=== PATIENT | female | born 1970 | race Caucasian/White ===

== ENCOUNTER 2017-10-11 00:14 | Emergency (ER) | payer SELFPAY ==
[2017-10-11 00:36] VITALS: BP 132/78; PULSE 75; TEMP 98.5; BMI 31.1
--- NOTE | 2017-10-11 01:22 | PDOC ---
History of Present Illness - General Chief Complaint: Sore Throat Stated Complaint: SORE THROAT Time Seen by Provider: 10/11/17 00:55 History Source: Patient Exam Limitations: No Limitations - History of Present Illness Initial Comments: 10/11/17 01:24 47-year-old female with no medical history presents to the emergency department complaining of a sore throat 3 days. Pain is described as 6/10 sore nonradiating intermittent discomfort with fever/chills but denies headache, dizziness, lightheadedness, facial pains, nasal congestion, rhinorrhea, earaches , neck stiffness/pain, back pains, chest pain, shortness of breath, abdominal pains, flank pains, urinary symptoms. Patient states she's been taken Tylenol with relief. Patient is able to tolerate by mouth without any difficulties. Timing/Duration: other (x3d) Associated Symptoms: reports: fever/chills (101.0 tmax). denies: cough, headaches, malaise, nausea/vomiting Past History - Past Medical History Allergies/Adverse Reactions: Allergies Allergy/AdvReac Type Severity Reaction Status Date / Time No Known Allergies Allergy Verified 10/11/17 00:33 Home Medications: Ambulatory Orders NK [No Known Home Medication] 09/15/16 Anemia: No Asthma: No Cancer: No Cardiac Disorders: No CVA: No COPD: No CHF: No Dementia: No Diabetes: No GI Disorders: No Disorders: No HTN: No Hypercholesterolemia: No Liver Disease: No Seizures: No Thyroid Disease: No - Surgical History Abdominal Surgery: No Appendectomy: No Cardiac Surgery: No Cholecystectomy: Yes (over 10 years ago) Lung Surgery: No Neurologic Surgery: No Orthopedic Surgery: No - Immunization History Immunization Up to Date: Yes - Suicide/Smoking/Psychosocial Hx Smoking Status: No Smoking History: Never smoked Have you smoked in the past 12 months: No Number of Cigarettes Smoked Daily: 0 Information on smoking cessation initiated: No Hx Alcohol Use: No Drug/Substance Use Hx: No Substance Use Type: None, Alcohol Hx Substance Use Treatment: No Review of Systems - Review of Systems Able to Perform ROS?: Yes Comments:: 10/11/17 01:17 CONSTITUTIONAL: +fever/chills Absent: diaphoresis, generalized weakness, malaise, loss of appetite HEENT: +throat pain Absent: rhinorrhea, nasal congestion, throat swelling, difficulty swallowing, mouth swelling, ear pain, eye pain, visual Changes CARDIOVASCULAR: Absent: chest pain, loss of consciousness, palpitations, irregular heart rate, peripheral edema RESPIRATORY: Absent: cough, shortness of breath, dyspnea with exertion, orthopnea, wheezing, stridor, hemoptysis GASTROINTESTINAL: Absent: abdominal pain, abdominal distension, nausea, vomiting, diarrhea, constipation, melena, hematochezia GENITOURINARY: Absent: dysuria, frequency, urgency, hesitancy, hematuria, flank pain, genital pain MUSCULOSKELETAL: Absent: myalgia, arthralgia, joint swelling SKIN: Absent: rash, itching, pallor HEMATOLOGIC/IMMUNOLOGIC: Absent: easy bleeding, easy bruising, lymphadenopathy, frequent infections Is the patient limited [place] Islander proficient: No *Physical Exam - Vital Signs Last Vital Signs Temp Pulse Resp BP Pulse Ox 98.5 F 75 14 132/78 98 10/11/17 00:33 10/11/17 00:33 10/11/17 00:33 10/11/17 00:33 10/11/17 00:33 - Physical Exam Comments: 10/11/17 01:17 GENERAL: Well developed, well nourished. Awake and alert. No acute distress. HEENT: Tonsilar erythematous/exudate Normocephalic, atraumatic. PERRLA, EOMI. No conjunctival pallor. Sclera are non- icteric. Moist mucous membranes. NECK: Supple. Full ROM. No JVD. Carotid pulses 2+ and symmetric, without bruits. No thyromegaly. No lymphadenopathy. CARDIOVASCULAR: Regular rate and rhythm. No murmurs, rubs, or gallops. Distal pulses are 2+ and symmetric. PULMONARY: No evidence of respiratory distress. Lungs clear to auscultation bilaterally. No wheezing, rales or rhonchi. ABDOMINAL: Soft. Non-tender. Non-distended. No rebound or guarding. No organomegaly. Normoactive bowel sounds. MUSCULOSKELETAL Normal range of motion at all joints. No bony deformities or tenderness. No CVA tenderness. EXTREMITIES: No cyanosis. No clubbing. No edema. No calf tenderness. SKIN: Warm and dry. Normal capillary refill. No rashes. No jaundice. ED Treatment Course - ADDITIONAL ORDERS Additional order review: 10/11/17 00:16 Group A Strep Rapid Antigen - Final Throat *DC/Admit/Observation/Transfer Diagnosis at time of Disposition: Viral pharyngitis - Discharge Dispostion Disposition: HOME Condition at time of disposition: Stable Admit: No - Referrals Referrals: Jose Crowder MD [Staff Physician] - - Patient Instructions Printed Discharge Instructions: DI for Viral Pharyngitis Additional Instructions: Gargle with salt water Rest increase fluids Tylenol as needed for pain Your strep throat was negative. A culture will take 3 days to return with a result but due to your exam of your throat, I will treat you with antibiotics/ Amoxicillin for your symptoms/exam. Follow up with your physician within 48 hours Return to the ER for severe/persistent/worsening symptoms - Post Discharge Activity
[2017-10-11] MEDS ORDERED: AMOXICILLIN 500 MG CAPSULE (FP) PO ONE (01:26)
[2017-10-11] MEDS ORDERED: AMOXICILLIN 500 MG CAPSULE (FP) ONE (01:38)
== END 2017-10-11 01:44 | disposition home or self-care (01) ==
LOC: JER 00:14
DX: J02.9 Acute pharyngitis, unspecified (principal); B97.89 Other viral agents as the cause of diseases classified elsewhere
CPT/HCPCS: 87070; 87077; 87430; 99281-25

== ENCOUNTER 2019-02-22 11:56 | Emergency (ER) | payer SELFPAY ==
[2019-02-22 12:09] VITALS: TEMP 98.4; BMI 23.2
[2019-02-22] MEDS ORDERED: ACETAMINOPHEN 1000 MG/100 ML VIAL (NON FORMULARY) IVPB ONE (12:58)
[2019-02-22] MEDS ORDERED: ACETAMINOPHEN INJECTION 100 ML IVPB ONE (13:01)
[2019-02-22 13:04] LABS: BASO % 0.3 % (0-2.0); EOS % 2.5 % (0-4.5); HEMATOCRIT 28.8 % (32.4-45.2); HEMOGLOBIN 8.6 GM/dL (10.7-15.3); LYMPH % 21.6 % (8-40); MCH 18.9 pg (25.7-33.7); MCHC 29.9 g/dl (32.0-36.0); MEAN CELL VOLUME 63.2 fl (80-96); MEAN PLT VOLUME 8.4 fl (7.5-11.1); MONO % 10.6 % (3.8-10.2); PLATELET COUNT 272 K/MM3 (134-434); RBC 4.55 M/mm3 (3.60-5.2); RDW 20.2 % (11.6-15.6); WHITE BLOOD COUNT 4.4 K/mm3 (4.0-10.0)
--- NOTE | 2019-02-22 13:14 | PDOC ---
*Physical Exam - Vital Signs Last Vital Signs Temp Pulse Resp BP Pulse Ox 98.4 F 84 20 124/71 99 02/22/19 12:07 02/22/19 12:07 02/22/19 12:07 02/22/19 12:07 02/22/19 12:07 ED Treatment Course - LABORATORY CBC & Chemistry Diagram: 02/22/19 12:54 02/22/19 12:54 - ADDITIONAL ORDERS Additional order review: 02/22/19 12:54 RBC 4.55 MCV 63.2 L MCHC 29.9 L RDW 20.2 H MPV 8.4 Neutrophils % 65.0 D Lymphocytes % 21.6 D Monocytes % 10.6 H Eosinophils % 2.5 Basophils % 0.3 Medical Decision Making - Medical Decision Making 02/22/19 13:12 48y/o F h/o anemia, nephrolithiasis, h/o cholecystectomy p/w vague diffuse abd pain and flank pain. + subj fever/chills. vss here, afebrile exam as noted with cvat presentation seems most c/w UTI, ? pyelo. less likely pancreatitis/hepatic, ? GI. labs, ua pain control defer imaging for now pending UA 02/22/19 17:46 ctap shows uncomplicated sigmoid diverticulitis. otherwise well appearing, can d /c on oral abx with GI f/u and return precautions. *DC/Admit/Observation/Transfer Diagnosis at time of Disposition: Sigmoid diverticulitis Abdominal pain Qualifiers: Abdominal location: generalized Qualified Code(s): R10.84 - Generalized abdominal pain - Referrals Referrals: Nicki Zarate MD [Primary Care Provider] - - Patient Instructions - Post Discharge Activity
--- NOTE | 2019-02-22 13:22 | PDOC ---
History of Present Illness - General Chief Complaint: Pain Stated Complaint: LOWER BACK PAIN \ STOMACH Time Seen by Provider: 02/22/19 12:24 History Source: Patient Exam Limitations: No Limitations Past History - Past Medical History Allergies/Adverse Reactions: Allergies Allergy/AdvReac Type Severity Reaction Status Date / Time No Known Allergies Allergy Verified 02/22/19 12:07 Home Medications: Ambulatory Orders Acetaminophen [Tylenol] 650 mg PO QID 02/22/19 Amoxicillin/Potassium Clav [Augmentin 875-125 Tablet] 1 each PO TID #21 tablet 02/22/19 Ibuprofen [Motrin -] 400 mg PO QID PRN 02/22/19 Anemia: No Asthma: No Cancer: No Cardiac Disorders: No CVA: No COPD: No CHF: No Dementia: No Diabetes: No GI Disorders: No Disorders: No HTN: No Hypercholesterolemia: No Liver Disease: No Seizures: No Thyroid Disease: No - Surgical History Abdominal Surgery: No Appendectomy: No Cardiac Surgery: No Cholecystectomy: Yes (over 10 years ago) Lung Surgery: No Neurologic Surgery: No Orthopedic Surgery: No - Immunization History Immunization Up to Date: Yes - Suicide/Smoking/Psychosocial Hx Smoking Status: No Smoking History: Never smoked Have you smoked in the past 12 months: No Number of Cigarettes Smoked Daily: 0 Hx Alcohol Use: No Drug/Substance Use Hx: No Substance Use Type: None, Alcohol Hx Substance Use Treatment: No *Physical Exam - Vital Signs Last Vital Signs Temp Pulse Resp BP Pulse Ox 98.4 F 84 20 124/71 99 02/22/19 12:07 02/22/19 12:07 02/22/19 12:07 02/22/19 12:07 02/22/19 12:07 - Physical Exam General Appearance: No: Apparent Distress Respiratory/Chest: positive: Lungs Clear, Normal Breath Sounds. negative: Respiratory Distress Cardiovascular: positive: Regular Rhythm, Regular Rate, S1, S2. negative: Murmur Gastrointestinal/Abdominal: positive: Tender (mild along epigastric and RUQ site ), Soft. negative: Distended, Guarding, Rebound Musculoskeletal: positive: CVA Tenderness (R>L) Integumentary: positive: Normal Color Neurologic: positive: Alert, Normal Mood/Affect ED Treatment Course - LABORATORY CBC & Chemistry Diagram: 02/22/19 12:54 02/22/19 12:54 - ADDITIONAL ORDERS Additional order review: 02/22/19 12:54 RBC 4.55 MCV 63.2 L MCHC 29.9 L RDW 20.2 H MPV 8.4 Neutrophils % 65.0 D Lymphocytes % 21.6 D Monocytes % 10.6 H Eosinophils % 2.5 Basophils % 0.3 Medical Decision Making - Medical Decision Making 48 y/o F hx of diverticulitis, kidney stones, cholecystectomy >10 years ago, presents with generalized abd pain and B/L flank pain which started 4 days ago along with chills, subjective fever and YEH. Denies URI sxs, sob, cp, n/v/d, urinary complaints. Took Motrin around 6 PM; states Motrin helps with fever, but does not help with the pain. Consider pyelonephritis Plan: Labs, UA, UCx, IV Tylenol 02/22/19 13:10 Abnormal Lab Results 02/22/19 02/22/19 02/22/19 12:54 12:54 13:52 Hgb 8.6 L Hct 28.8 L MCV 63.2 L MCH 18.9 L MCHC 29.9 L RDW 20.2 H Monocytes % 10.6 H Chloride 108 H Anion Gap 2 L Creatinine 0.5 L Random Glucose 128 H Calcium 8.3 L Ur Leukocyte Esterase 1+ H Labs show anemia, which is at patient's baseline UA unremarkable CT A/P done to further assess cause of sxs and showed acute uncomplicated diverticulitis Patient given Augmentin Stable for dc 02/22/19 17:46 *DC/Admit/Observation/Transfer Diagnosis at time of Disposition: Diverticulitis - Discharge Dispostion Disposition: HOME Condition at time of disposition: Stable Decision to Admit order: No - Prescriptions Prescriptions: Amoxicillin/Potassium Clav [Augmentin 875-125 Tablet] 1 each PO TID #21 tablet - Referrals Referrals: Nicki Zarate MD [Primary Care Provider] - 2 Days - Patient Instructions Printed Discharge Instructions: DI for Diverticulitis, Clear Liquid Diet Additional Instructions: Thank you for choosing [facility]. It was a pleasure taking care of you. You were found to have colon infection Recommend eating LOW fiber foods and liquid diet until feeling better Take antibiotics as prescribed Follow-up with your doctor in 2-3 days Return to the Emergency Department if your symptoms worsen or persist or have other concerning symptoms. - Post Discharge Activity
[2019-02-22 13:33] LABS: ALBUMIN 3.4 g/dl (3.4-5.0); BILIRUBIN,TOTAL 0.5 mg/dL (0.2-1); CALCIUM 8.3 mg/dL (8.5-10.1); CREATININE 0.5 mg/dL (0.55-1.3); POTASSIUM 3.8 mmol/L (3.5-5.1); TOT PROT 7.9 g/dl (6.4-8.2)
[2019-02-22 14:10] LABS: EPI CELLS 3.6 /HPF (0-5/HPF); PH,URINE 6.5 (5.0-8.0); URINE APPEARANCE CLEAR; URINE BACTERIA 82.1 /hpf (NEGATIVE); URINE BILIRUBIN NEGATIVE (NEGATIVE); URINE CASTS 4 /lpf (0-8); URINE COLOR YELLOW; URINE GLUCOSE (UA) NEGATIVE (NEGATIVE); URINE KETONE NEGATIVE (NEGATIVE); URINE LEUK ESTERASE 1+ (NEGATIVE); URINE NITRITE NEGATIVE (NEGATIVE); URINE PROTEIN NEGATIVE (NEGATIVE); URINE RBC 2 /hpf (0-4); URINE WBC 7 /hpf (0-5)
[2019-02-22 14:31] LABS: ANISOCYTOSIS 2+; MACROCYTOSIS 0; OVALOCYTE 1+; PLATELET ESTIMATE NORMAL
[2019-02-22] MEDS ORDERED: AMOX TR/POT CLAV 875MG/125MG TABLETS (FP) PO ONE (17:34)
[2019-02-22] MEDS ORDERED: AMOX TR/POT CLAV 875MG/125MG TABLETS (FP) ONE (17:40)
[2019-02-22 18:20] VITALS: BP 115/76; PULSE 78
== END 2019-02-22 18:20 | disposition home or self-care (01) ==
LOC: JER 11:56
PROC: 3E033NZ Introduction of Analgesics, Hypnotics, Sedatives into Peripheral Vein, Percutaneous Approach (ICD-10-PCS; principal; 2019-02-22)
DX: K57.92 Diverticulitis of intestine, part unspecified, without perforation or abscess without bleeding (principal); N20.0 Calculus of kidney
CPT/HCPCS: 36415; 74177-TC; 80053; 81003; 83690; 84703; 85025; 87086; 99282-25; J0131

== ENCOUNTER 2019-02-25 08:21 | Emergency (ER) | payer SELFPAY ==
[2019-02-25 08:27] VITALS: BMI 29.2
[2019-02-25] MEDS ORDERED: SODIUM CHLORIDE 1,000 ML IV STA (09:24)
[2019-02-25] MEDS ORDERED: KETOROLAC TROMETHAMINE 30 MG/1 ML VIAL IVPUSH ONE (09:24)
[2019-02-25] MEDS ORDERED: KETOROLAC TROMETHAMINE 30 MG/1 ML VIAL ONE (09:34)
[2019-02-25 10:03] LABS: BASO % 0.6 % (0-2.0); EOS % 2.1 % (0-4.5); HEMATOCRIT 27.2 % (32.4-45.2); HEMOGLOBIN 8.3 GM/dL (10.7-15.3); LYMPH % 24.3 % (8-40); MCHC 30.7 g/dl (32.0-36.0); MEAN CELL VOLUME 62.4 fl (80-96); MEAN PLT VOLUME 8.7 fl (7.5-11.1); MONO % 7.3 % (3.8-10.2); NEUT % 65.7 % (42.8-82.8); PLATELET COUNT 302 K/MM3 (134-434); RBC 4.36 M/mm3 (3.60-5.2); WHITE BLOOD COUNT 5.5 K/mm3 (4.0-10.0)
[2019-02-25 10:08] LABS: MCH 19.2 pg (25.7-33.7)
[2019-02-25 10:10] LABS: HCG,QUALITATIVE URINE Negative
[2019-02-25 10:15] LABS: EPI CELLS 5.3 /HPF (0-5/HPF); URINE APPEARANCE CLEAR; URINE BACTERIA 0.7 /hpf (NEGATIVE); URINE BILIRUBIN NEGATIVE (NEGATIVE); URINE CASTS 3 /lpf (0-8); URINE COLOR YELLOW; URINE GLUCOSE (UA) NEGATIVE (NEGATIVE); URINE KETONE NEGATIVE (NEGATIVE); URINE LEUK ESTERASE TRACE (NEGATIVE); URINE NITRITE NEGATIVE (NEGATIVE); URINE PROTEIN NEGATIVE (NEGATIVE); URINE RBC 2 /hpf (0-4); URINE WBC 2 /hpf (0-5)
--- NOTE | 2019-02-25 10:31 | PDOC ---
History of Present Illness - General Chief Complaint: Urinary Problem Stated Complaint: BACK PAIN Time Seen by Provider: 02/25/19 09:20 History Source: Patient Exam Limitations: No Limitations - History of Present Illness Travel History: No Initial Comments: 02/25/19 10:00 48-year-old female with history of diverticulitis presents to ED with complaints of lower abdominal rash or dysuria and now with flank pain since yesterday. States 3 days ago came to the ER and was told that she had diverticulitis and was given Augmentin which she has been taking but states symptoms continue. Patient denies nausea, fever, chills chest pain, shortness of breath, diarrhea, or vaginal discharge. Timing/Duration: reports: getting worse Quality: reports: mild, cramping, fullness Abdominal Pain Onset Location: reports: suprapubic Pain Radiation: reports: no radiation Activities at Onset: reports: none Aggravating Factors: improves with: None Alleviating Factors: improves with: None Past History - Travel Traveled outside of the country in the last 30 days: No Close contact w/someone who was outside of country & ill: No - Past Medical History Allergies/Adverse Reactions: Allergies Allergy/AdvReac Type Severity Reaction Status Date / Time No Known Allergies Allergy Verified 02/25/19 08:24 Home Medications: Ambulatory Orders Acetaminophen [Tylenol] 650 mg PO QID 02/22/19 Amoxicillin/Potassium Clav [Augmentin 875-125 Tablet] 1 each PO TID #21 tablet 02/22/19 Ibuprofen [Motrin -] 400 mg PO QID PRN 02/22/19 Anemia: No Asthma: No Cancer: No Cardiac Disorders: No CVA: No COPD: No CHF: No Dementia: No Diabetes: No GI Disorders: Yes Disorders: No HTN: No Hypercholesterolemia: No Liver Disease: No Seizures: No Thyroid Disease: No - Surgical History Abdominal Surgery: No Appendectomy: No Cardiac Surgery: No Cholecystectomy: Yes (over 10 years ago) Lung Surgery: No Neurologic Surgery: No Orthopedic Surgery: No - Reproductive History Is Patient Now?: No - Immunization History Immunization Up to Date: Yes - Suicide/Smoking/Psychosocial Hx Smoking Status: No Smoking History: Never smoked Have you smoked in the past 12 months: No Number of Cigarettes Smoked Daily: 0 Information on smoking cessation initiated: No Hx Alcohol Use: No Drug/Substance Use Hx: No Substance Use Type: None, Alcohol Hx Substance Use Treatment: No Patient Lives Alone: No Lives with/in: spouse/SO Abd/GI Specific PMHX - Complaint Specific PMHX Diverticulitis: Yes Review of Systems - Review of Systems Able to Perform ROS?: Yes Constitutional: No: Symptoms Reported HEENTM: No: Symptoms Reported Respiratory: No: Symptoms reported Cardiac (ROS): No: Symptoms Reported ABD/GI: Yes: Abdominal cramping : Yes: Dysuria, Frequency, Flank Pain Musculoskeletal: Yes: Back Pain Integumentary: No: Symptoms Reported Neurological: No: Symptoms reported Endocrine: No: Symptoms Reported Hematologic/Lymphatic: No: Symptoms Reported *Physical Exam - Vital Signs Last Vital Signs Temp Pulse Resp BP Pulse Ox 98.7 F 85 16 116/63 99 02/25/19 08:25 02/25/19 08:25 02/25/19 08:25 02/25/19 08:25 02/25/19 08:25 - Physical Exam General Appearance: Yes: Nourished, Appropriately Dressed. No: Apparent Distress Respiratory/Chest: positive: Lungs Clear, Normal Breath Sounds. negative: Respiratory Distress, Accessory Muscle Use Cardiovascular: positive: Regular Rhythm, Regular Rate. negative: Murmur Gastrointestinal/Abdominal: positive: Normal Bowel Sounds, Soft, Tenderness ( lower quadrant left suprapubic mid suprapubic) Musculoskeletal: positive: CVA Tenderness (R), CVA Tenderness (L) Extremity: positive: Normal Inspection Integumentary: positive: Normal Color, Warm, Moist Neurologic: positive: Motor Strength 5/5 (ambulatory) ED Treatment Course - LABORATORY CBC & Chemistry Diagram: 02/25/19 09:55 02/25/19 09:55 - ADDITIONAL ORDERS Additional order review: Laboratory Results 02/25/19 09:55 Urine HCG, Qual Negative 02/25/19 09:55 RBC 4.36 MCV 62.4 L MCHC 30.7 L RDW 20.0 H MPV 8.7 Neutrophils % 65.7 Lymphocytes % 24.3 Monocytes % 7.3 Eosinophils % 2.1 Basophils % 0.6 - Medications Given in the ED: ED Medications Discontinued Medications Generic Name Dose Route Start Last Admin Trade Name Freq PRN Reason Stop Dose Admin Sodium Chloride 1,000 mls @ 1,000 mls/hr 02/25/19 09:24 02/25/19 09:57 Normal Saline - IV 02/25/19 10:23 1,000 mls/hr ASDIR STA Administration Ketorolac Tromethamine 30 mg 02/25/19 09:24 02/25/19 09:57 Toradol Injection - IVPUSH 02/25/19 09:25 30 mg ONCE ONE Administration Medical Decision Making - Medical Decision Making 02/25/19 10:00 Chief complaint: Frequency dysuria and now with flank pain for the past few days. Patient denies fever. Patient with history of diverticulitis but denies any bowel complaints. Exam: Patient with lower abdominal tenderness along with CVA tenderness Plan: Labs, urine, IV fluids, Toradol 02/25/19 10:31 Laboratory Tests 02/25/19 02/25/19 09:55 09:55 WBC 5.5 Hgb 8.3 L Hct 27.2 L Plt Count 302 Urine HCG, Qual Negative 02/25/19 11:21 Laboratory Tests 02/25/19 02/25/19 02/25/19 09:55 09:55 09:55 WBC 5.5 Hgb 8.3 L Hct 27.2 L RDW 20.0 H Absolute Neuts (auto) 3.6 Sodium 138 Potassium 3.9 Chloride 109 H Carbon Dioxide 23 Anion Gap 6 L BUN 8 Creatinine 0.3 L Calcium 8.1 L Total Bilirubin 0.4 AST 15 ALT 22 Alkaline Phosphatase 77 Total Protein 7.6 Albumin 3.2 L Urine Ketones Negative Urine Blood Negative Urine Nitrite Negative Urine Bilirubin Negative Urine Urobilinogen 1.0 Ur Leukocyte Esterase Trace Urine RBC (Auto) 2 Urine HCG, Qual Negative Due to Patient's recent diagnosis of diverticulitis and urinary complaints, patient will be placed on Levaquin and Flagyl for optimal treatment for both. *DC/Admit/Observation/Transfer Diagnosis at time of Disposition: Pyelonephritis, Sigmoid diverticulitis - Discharge Dispostion Disposition: HOME Condition at time of disposition: Good - Referrals - Patient Instructions Printed Discharge Instructions: DI for Diverticulitis, DI for Kidney Infection Additional Instructions: I recommend drinking at least 2 L of water on a daily basis and stop taking the antibiotic you're on and start the new medication today. I recommend follow-up with your doctor in the next week. If symptoms do not improve or worsen please return to the nearest ER. - Post Discharge Activity
[2019-02-25 10:42] LABS: ALBUMIN 3.2 g/dl (3.4-5.0); BILIRUBIN,TOTAL 0.4 mg/dL (0.2-1); CALCIUM 8.1 mg/dL (8.5-10.1); CREATININE 0.3 mg/dL (0.55-1.3); POTASSIUM 3.9 mmol/L (3.5-5.1); TOT PROT 7.6 g/dl (6.4-8.2)
[2019-02-25 11:41] VITALS: BP 121/62; PULSE 82; TEMP 98.2
[2019-02-25 12:03] LABS: URINE CRYSTALS CALCIUM OXALATE /hpf
== END 2019-02-25 11:41 | disposition home or self-care (01) ==
LOC: JER 08:21
PROC: 3E0333Z Introduction of Anti-inflammatory into Peripheral Vein, Percutaneous Approach (ICD-10-PCS; principal; 2019-02-25)
DX: R35.0 Frequency of micturition (principal); N12 Tubulo-interstitial nephritis, not specified as acute or chronic; K57.92 Diverticulitis of intestine, part unspecified, without perforation or abscess without bleeding
CPT/HCPCS: 36415; 80053; 81003; 84703; 85025; 87086; 99282-25; J7030

== ENCOUNTER 2020-10-22 23:01 | Emergency (ER) | payer OTHER ==
[2020-10-22 23:06] VITALS: BMI 31.1
[2020-10-23] MEDS ORDERED: FAMOTIDINE 20 MG TABLET PO ONE (00:33)
[2020-10-23] MEDS ORDERED: MAG HYDROX/AL HYDROX/SIMETH 30 ML UNIT-DOSE CUP PO ONE (00:33)
[2020-10-23] MEDS ORDERED: ACETAMINOPHEN 500 MG TABLET (FP) PO ONE (00:34)
[2020-10-23] MEDS ORDERED: LIDOCAINE 5% TOPICAL PATCH TP ONE (01:04)
[2020-10-23] MEDS ORDERED: FAMOTIDINE 20 MG TABLET ONE (01:16)
[2020-10-23] MEDS ORDERED: ACETAMINOPHEN 325 MG TABLET (FP) ONE (01:16)
[2020-10-23] MEDS ORDERED: LIDOCAINE 5% TOPICAL PATCH ONE (01:17)
[2020-10-23] MEDS ORDERED: MAG HYDROX/AL HYDROX/SIMETH 30 ML UNIT-DOSE CUP ONE (01:17)
[2020-10-23 01:58] LABS: BASO % 0.3 % (0-2.0); EOS % 2.6 % (0-4.5); HEMATOCRIT 31.3 % (32.4-45.2); HEMOGLOBIN 9.5 GM/dL (10.7-15.3); LYMPH % 29.2 % (8-40); MCHC 30.2 g/dl (32.0-36.0); MEAN PLT VOLUME 7.7 fl (7.5-11.1); MONO % 10.4 % (3.8-10.2); NEUT % 57.5 % (42.8-82.8); PLATELET COUNT 447 K/MM3 (134-434); RBC 4.82 M/mm3 (3.60-5.2); RDW 19.2 % (11.6-15.6); WHITE BLOOD COUNT 5.7 K/mm3 (4.0-10.0)
[2020-10-23 02:02] LABS: EPI CELLS >36 /uL (0-25.1); HYALINE CASTS 2 /uL (0-3.1); PH,URINE 6.5 (5.0-8.0); URINE APPEARANCE Error; URINE BACTERIA 2232 /uL (0-1359); URINE BILIRUBIN NEGATIVE (NEGATIVE); URINE COLOR YELLOW; URINE GLUCOSE (UA) NEGATIVE (NEGATIVE); URINE KETONE NEGATIVE (NEGATIVE); URINE LEUK ESTERASE 2+ (NEGATIVE); URINE NITRITE NEGATIVE (NEGATIVE); URINE PROTEIN NEGATIVE (NEGATIVE); URINE RBC 4 /uL (0-23.9); URINE WBC 85 /uL (0-25.8)
[2020-10-23 02:06] LABS: INR 1.06 (0.83-1.09); PROTHROMBIN TIME (PATIENT) 12.8 SEC (9.7-13.0)
[2020-10-23 02:23] LABS: MCH 19.6 pg (25.7-33.7)
[2020-10-23 02:34] LABS: CHLORIDE 106 mmol/L (98-107); SODIUM 139 mmol/L (136-145)
[2020-10-23 02:36] LABS: ALBUMIN 3.4 g/dl (3.4-5.0); ANION GAP 8 MMOL/L (8-16); BLOOD UREA NITROGEN 5.3 mg/dL (7-18); CALCIUM 8.4 mg/dL (8.5-10.1); CO2 25 mmol/L (21-32); GLUCOSE,RANDOM 112 mg/dL (74-106)
[2020-10-23 02:39] LABS: CREATININE 0.5 mg/dL (0.55-1.3); SGOT/AST 20 U/L (15-37); SGPT/ALT 35 U/L (13-61)
[2020-10-23 02:41] LABS: BILIRUBIN,TOTAL 0.4 mg/dL (0.2-1); TOT PROT 8.2 g/dl (6.4-8.2)
[2020-10-23 02:42] LABS: ALK PHOS 87 U/L (45-117)
[2020-10-23 03:23] VITALS: BP 132/84; PULSE 78; TEMP 98.4
[2020-10-23 03:23] LABS: ANISOCYTOSIS 3+; MACROCYTOSIS 0; OVALOCYTE 2+; PLATELET ESTIMATE NORMAL
[2020-10-23] MEDS ORDERED: LIDOCAINE PATCH REMOVAL MC ONE (13:00)
[2020-10-23 14:41] LABS: LIPASE 104 U/L (73-393)
== END 2020-10-23 03:23 | disposition home or self-care (01) ==
LOC: JER 23:01
DX: R10.13 Epigastric pain (principal); M54.6 Pain in thoracic spine; N39.0 Urinary tract infection, site not specified
CPT/HCPCS: 36415; 71046-TC-FY; 80053; 81003; 83690; 84484; 84703; 85025; 85610; 87086; 87186; 93005; 93010; 99285-25; C9803; U0003

== ENCOUNTER 2022-04-29 22:45 | Emergency (ER) | payer SELFPAY ==
[2022-04-29 23:04] VITALS: BP 146/89; PULSE 101; TEMP 101; BMI 40.8
[2022-04-30] MEDS ORDERED: IBUPROFEN 600 MG TABLET (FP) PO ONE ×2 (00:42→01:14)
[2022-04-30] MEDS ORDERED: ACETAMINOPHEN 325 MG TABLET (FP) PO ONE (00:42)
[2022-04-30] MEDS ORDERED: ACETAMINOPHEN 325 MG TABLET (FP) ONE (01:14)
== END 2022-04-30 02:36 | disposition home or self-care (01) ==
LOC: JER 22:45
DX: R51.9 Headache, unspecified (principal); R50.9 Fever, unspecified; M79.10 Myalgia, unspecified site
CPT/HCPCS: 0241U-QW; 99283-25